=== PATIENT | female | born 1965 | race Caucasian/White ===

== ENCOUNTER → 2016-03-09 | Outpatient (CLI) | payer BC ==
[~2016-03-09] MED LIST: ALBU1AER9 INH; ASCA500 PO; FLUT0.15 NAE; LORA10TA57 PO; MULT-506 PO; MULT-580 PO
--- NOTE | 2016-03-09 11:37 | DIAGNOSTIC IMAGING REPORT ---
MRI OF THE LUMBAR SPINE WITHOUT IV CONTRAST CLINICAL HISTORY: Lumbar spondylosis. Low back pain and lower extremity radiculopathy. COMPARISON STUDY: No priors. TECHNIQUE: MRI of the lumbar spine is performed utilizing various T1 and T2-weighted sequences in the axial and sagittal planes. IV contrast was not administered for this examination. FINDINGS: Lumbar spine: Vertebral body height and alignment are maintained throughout the lumbar spine. Normal marrow signal intensity is preserved. No destructive bony lesion is seen. The transverse and spinous processes appear intact. There is no evidence of spondylolysis. Minimal degenerative endplate edema is seen at L3-L4. Hemangiomas are identified in the bodies of L1 and L2. Intervertebral discs: There is minimal degenerative disc desiccation seen throughout the lumbar spine. No loss of height is identified. Spinal cord: The partially imaged spinal cord is normal in morphology and signal intensity. The conus medullaris terminates at the level of L1. The nerve roots of the cauda equina are normal in morphology. L1-L2: Unremarkable. L2-L3: Unremarkable. L3-L4: There is minimal facet arthropathy of no consequence. The central canal and neural foramina are widely patent. L4-L5: Facet arthropathy is of no consequence. The central canal and neural foramina are widely patent. L5-S1: Unremarkable. Sacrum: Imaged sacrum is normal in morphology and signal intensity. Soft tissues: The paraspinous soft tissues are within normal limits. The partially imaged retroperitoneal structures are grossly normal but incompletely evaluated. A cystic structure in the left adnexa is likely related to the left ovary. IMPRESSION: 1. There is no disc herniation, central canal stenosis, or significant neural foraminal narrowing identified throughout the lumbar spine. 2. Minimal degenerative disc disease as above. There is minimal endplate edema at L3-L4. Dictated: 03/09/2016 11:10 AM Transcribed: 03/09/2016 11:36 AM [email or web address] Electronically signed by: Matt Strickland M.D. 03/09/2016 11:45 AM Dictated Date/Time: 03/09/2016 11:10 AM
== END | disposition home or self-care (01) ==
LOC: C.MRI 10:22
PROVIDERS: ATTEND Orthopaedic Surgery Orthopaedic Surgery of the Spine
DX: M47.896 Other spondylosis, lumbar region (principal)